=== PATIENT | male | born 1935 | race Caucasian/White ===

== ENCOUNTER → 2016-03-29 | Outpatient (CLI) | payer OTHER ==
[~2016-03-29] VITALS: Ht 193 cm; Wt 94.4 kg
[~2016-03-29] MED LIST: ACET-749 PO; ASCA500 PO; B-COCAP2 PO; COEN75CA PO; MAGN250T22 PO; MULT-506 PO; VITA400C15 PO
[2016-03-29 14:59] VITALS: BP 151/84; PULSE 65; Ht 193 cm; Wt 94.4 kg
== END | disposition home or self-care (01) ==
LOC: C.NEUR 14:43
PROVIDERS: ATTEND Internal Medicine Pulmonary Disease
DX: G47.33 Obstructive sleep apnea (adult) (pediatric) (principal); G47.31 Primary central sleep apnea

== ENCOUNTER → 2016-04-10 | Outpatient (CLI) | payer OTHER ==
[2016-04-10 12:21] LABS: COMPLETE YES; EOS % 1.6 %; HEMATOCRIT 38.5 % (42-52); LYMPH % 39.4 %; LYMPH ABS # 1.22 K/uL (1.2-3.4); MEAN CELL VOLUME 95.8 fL (80-100); MEAN CORPUSCULAR HEMOGLOBIN 32.6 pg (25-34); MEAN PLATELET VOLUME 10.3 fL (7.4-10.4); MONO % 8.7 %; NEUT % 50.3 %; PLATELET COUNT 147 K/uL (130-400); RED BLOOD COUNT 4.02 M/uL (4.7-6.1)
[2016-04-10 12:29] LABS: ALT/SGPT 23 U/L (12-78); BLOOD UREA NITROGEN 18 mg/dl (7-18); BUN/CREATININE RATIO 16.4 (10-20); CALCIUM 8.9 mg/dl (8.5-10.1); CARBON DIOXIDE 25 mmol/L (21-32); CHLORIDE 107 mmol/L (98-107); CHOLESTEROL 195 mg/dl (0-200); GLUCOSE 90 mg/dl (70-99); POTASSIUM 3.9 mmol/L (3.5-5.1); SODIUM 141 mmol/L (136-145); TRIGLYCERIDES 86 mg/dl (0-150); VERY LOW DENSITY LIPOPROT CALC 17 mg/dl
[2016-04-10 12:33] LABS: ALB/GLOB RATIO 1.2 (0.9-2); ALKALINE PHOSPHATASE 75 U/L (45-117); AST/SGOT 17 U/L (15-37); CHOLESTEROL/HDL RATIO 2.7; FERRITIN 138.4 ng/ml (8.0-388.0); HDL CHOLESTEROL 73 mg/dl; LDL CHOLESTEROL CALCULATED 105 mg/dl; TOTAL IRON BINDING CAPACITY 267 mcg/dl (250-450)
--- NOTE | 2016-04-17 08:57 | CODING QUERY MEDICAL NECESSITY ---
SUPPORTING DIAGNOSIS NEEDED A supporting diagnosis is required for the test/procedure performed on this patient in order for us to be reimbursed by the patient's insurance. Please provide a supporting diagnosis for the following test/procedure listed below next to the test name along with your signature. *If there is no additional diagnosis for this patient that would support the following test/procedure please document that below next to the test/procedure. Test(s)/Procedure(s) that require a supporting diagnosis: DOS 04/10 * Vitamin B12 DIAGNOSIS: Provider Signature: Date: Thank you Elizabeth Harmon Health Information Management Once completed, please kindly fax back to [phone] For questions please call [phone]
== END | disposition home or self-care (01) ==
LOC: C.LAB1850 10:46
PROVIDERS: ATTEND Internal Medicine
DX: Z00.00 Encounter for general adult medical examination without abnormal findings (principal); D64.9 Anemia, unspecified; I10 Essential (primary) hypertension

== ENCOUNTER → 2016-07-31 | Outpatient (CLI) | payer OTHER ==
[~2016-07-31] VITALS: Ht 193 cm; Wt 90.4 kg
[~2016-07-31] MED LIST changes: -ACET-749 PO
[2016-07-31 14:47] VITALS: BP 161/73; PULSE 80; Ht 193 cm; Wt 90.4 kg
== END ==
LOC: C.NEUR 12:50
PROVIDERS: ATTEND Internal Medicine Pulmonary Disease
DX: G47.33 Obstructive sleep apnea (adult) (pediatric) (principal); G47.31 Primary central sleep apnea

== ENCOUNTER → 2016-09-25 | Outpatient (CLI) | payer OTHER ==
[2016-09-25 12:23] LABS: BASO % 0.4 %; BASO ABS # 0.01 K/uL (0-0.2); COMPLETE YES; EOS % 1.4 %; HEMATOCRIT 39.2 % (42-52); LYMPH % 31.8 %; LYMPH ABS # 0.88 K/uL (1.2-3.4); MEAN CORPUSCULAR HEMOGLOBIN 32.7 pg (25-34); MEAN CORPUSCULAR HGB CONC 33.7 g/dl (32-36); MEAN PLATELET VOLUME 10.1 fL (7.4-10.4); MONO % 8.3 %; NEUT % 58.1 %; PLATELET COUNT 142 K/uL (130-400); RED BLOOD COUNT 4.04 M/uL (4.7-6.1); WHITE BLOOD COUNT 2.77 K/uL (4.8-10.8)
[2016-09-25 13:52] LABS: BLOOD UREA NITROGEN 21 mg/dl (7-18); BUN/CREATININE RATIO 16.1 (10-20); CALCIUM 9.4 mg/dl (8.5-10.1); CARBON DIOXIDE 29 mmol/L (21-32); CHLORIDE 106 mmol/L (98-107); GLUCOSE 90 mg/dl (70-99); POTASSIUM 4.3 mmol/L (3.5-5.1); SODIUM 141 mmol/L (136-145)
== END | disposition home or self-care (01) ==
LOC: C.LAB1850 11:09
PROVIDERS: ATTEND Physician Assistant
DX: G47.33 Obstructive sleep apnea (adult) (pediatric) (principal); F41.9 Anxiety disorder, unspecified

== ENCOUNTER → 2016-10-30 | Outpatient (CLI) | payer OTHER ==
[~2016-10-30] VITALS: Ht 193 cm; Wt 89.1 kg
[2016-10-30 14:41] VITALS: BP 152/83; PULSE 60; Ht 193 cm; Wt 89.1 kg
== END | disposition home or self-care (01) ==
LOC: C.NEUR 13:09
PROVIDERS: ATTEND Internal Medicine Pulmonary Disease
DX: G47.33 Obstructive sleep apnea (adult) (pediatric) (principal); G47.31 Primary central sleep apnea

== ENCOUNTER → 2016-12-17 | Outpatient (CLI) | payer OTHER ==
--- NOTE | 2016-12-18 05:42 | PAP/PSG TECHNICIAN REPORT ---
[facility] Tray Service Worker Polysomnogram Report Study name: None Report date: 12/18/2016 Study date: 12/17/2016 Referring Physician: Michael Marcos M.D. Name: HERI JUAN Felipe Interpreting Physician: Michael Marcos M.D. Date of : 1935 Tray Service Worker: Marysol Rosales RPSGT. Sex: Male Age: 80 StudyType: PSG PAP Weight: 206 lbs Height: 80 years, Height 6' 4" Neck Circum:16INCHES BMI: 25.07 Medications: Alprazolam 0.25mg, Mipirocin Ointment 2% Patient History Study started on room air with ASV settings: min EPAP +4, max EPAP+15, min PS+4, max PS +20, max pressure +25 in room #6. 80 yr old male here tonight for an ASV study because he failed CPAP and Bi-PAP. He is currently on Bi-PAP +02/22 but is having a high leak. His neck circ=16inches. Parameters Monitored NPSG: E1-M2, E2-M1, Fp1-M2, Fp2-M1, F3-M2, F4-M2, F4-M1, C3-M2, C4-M2, C4-M1, O1-M2, O2-M2, O2-M1, T3-M2, T4-M1, P3-M2, P4-M1, CHIN1, CHIN2, HR, EKG, Legs, PFLOW, SNOR, FLOW, CFLOW, Tidal Volume, THOR, ABDO, SpO2, PLTH, CPRESS, ETCO2 Wave, ETCO2, pH Sleep Architecture Sleep Stages Time at Lights Off 11:27:02 PM STAGES Time (min.) TST (%) Time at Lights On 5:37:32 AM Wake 170.0 -- Total Recording Time (TRT) 370.50 min. N1 30.5 15 Total Sleep Period (TSP) 273.0 min. N2 162.0 81 Total Sleep Time (TST) 200.5min. N3 0.0 0 Awake Time 170.0 min. REM 8.0 4 Wake after Sleep Onset 160.0 min. Sleep Efficiency (SE) 54 % Sleep Onset Latency (ALEJANDRO) 10.0 min. Number of Stage 1 Shifts None Awakenings 20 Stage Changes 89 Number of REM periods 6 REM 8.0 4 REM Latency 126.5 min. NREM 192.5 96 Body Position Analysis Supine Right Left Side Prone Vertical Total Sleep Time (min.) 370.5 0.0 0.0 0.00 0.0 0.0 Total Sleep Time (%) 100% 0% 0% 0 0% N/A% Total Sleep Time REM (min.) 8.0 0.0 0.0 None 0.0 0.0 Total Sleep Time NREM (min.) 192.5 0.0 0.0 None 0.0 0.0 Intermittent Wake (min.) 170.0 0.0 0.0 None 0.0 0.0 Total Sleep Period (%) 100% None None None None None Arousals Myoclonus (PLM) * Events Count Index Events Count Index Spontaneous 26 8 Events Awake (PLMW) 292 103.1 Respiratory 7 2.4 Events Asleep w/ Arousal (PLMA) 61 18.3 PLM 60 18 Events Asleep w/o Arousal (PLMS) 529 158.3 Snoring 16 5 Total Asleep 590 176.6 Total 107 32 Total 882 143 Respiratory Analysis * CA OA MA CH H RERA Total Count 3 2 0 0 4 0 9 Index 0.9 0.6 0.0 0 1.2 0 2.7 Mean Duration 19.5 14.4 0.0 0.00 37.8 0.0 26.5 Longest Duration 30.3 15.3 0.0 0.00 0.0 0.0 48.3 Respiratory Event Summary Total Supine ~Supine Right Left Prone REM NREM Apneas Count 5 5 N/A N/A N/A N/A 0 5 Index 1.5 1 N/A N/A N/A N/A 0 2 Hypopneas (4% Desat) Count 4 4 N/A N/A N/A N/A 0 4 Index 1.2 1.2 N/A N/A N/A N/A 0.0 1.2 Apneas & All Hypopneas Count 9 9 N/A N/A N/A N/A 0 9 Index 2.7 3 N/A N/A N/A N/A 0.0 2.8 Respiratory Events (Slat Basket Maker Machine+All Hyp+RERA) Count 9 9 N/A N/A N/A N/A 0 9 Index 2.7 3 N/A N/A N/A N/A 0.0 2.8 Respiratory Related Arousal Count 7 9 N/A N/A N/A N/A 0 8 Index 2.4 2 N/A N/A N/A N/A 0 2 Snoring Analysis Supine Right Left Prone REM NREM Total Snore duration 10.5 min Snores count 296 N/A N/A N/A 61 235 296 Snore mean duration 2.1 Sec Snores index 89 N/A N/A N/A 457.5 73.2 88.6 TST with snoring (%) 5.3% Desaturation Event Summary: Minimum %SpO2 Event Count Mean/Min/Max Duration(sec.) Desaturation Index % Time In Bed > 90 5 33.6 / 23.3 / 41.5 0.8 99.5 86 - 90 0 N/A 0.0 0.5 81 - 85 0 N/A 0.0 0.0 76 - 80 0 N/A 0.0 0.0 71 - 75 0 N/A 0.0 0.0 66 - 70 0 N/A 0.0 0.0 61 - 65 0 N/A 0.0 0.0 56 - 60 0 N/A 0.0 0.0 51 - 55 0 N/A 0.0 0.0 < 50 0 N/A 0.0 0.0 Total REM NREM Awake <50% 0.0 min. 0.0 min. 0.0 min. 0.0 min. 51 - 60% 0.0 min. 0.0 min. 0.0 min. 0.0 min. 61 - 70% 0.0 min. 0.0 min. 0.0 min. 0.0 min. 71 - 80% 0.0 min. 0.0 min. 0.0 min. 0.0 min. 81 - 90% 1.8 min. 0.0 min. 1.5 min. 0.2 min. 91 - 100% 360.0 min. 8.0 min. 191.0 min. 161.0 min. Average 95 94 94 96 Minimum SpO2 88 92 88 88 Desaturation Event Index 0.8 0.0 1.2 0.4 # Desat. Events below 89% 1 N/A 1 N/A Time(%) with Saturation below 89% 0.0 0.0 0.0 0.0 Time(min.) with Saturation below 89% 0.1 0.0 0.1 0.1 Time (mins) REM (mins) NREM (mins) % of TST SpO2 Below 90% 3 N/A N3 0.2 SpO2 Below 88% 0 0 0 0 Heart Rate Analysis Min (bpm) Max (bpm) Average (bpm) Awake 30 80 52 NREM 34 55 48 REM 44 50 48 Overall 34 55 48 Supplemental O2 Values Minimum O2 level: None Value Start Time End Time Tray Service Worker Comments Mr. Fregoso slept in the supine position. Cardiac arrhythmia and PLM's were noted. No bruxism noted. ASV was initiated at: EPAP MIN: +4 CMH2O EPAP MAX: +[id number] PS MIN: +4CMH2O PS MAX: +80LCV8G MAX PRESSURE +[id number] RATE: AUTO No changes to the settings were needed. A large Simplus full face mask was used during titration. He awoke to use the restroom 1 time during the night. He stated that he slept worse than when at home. ASV FINAL SETTINGS: EPAP MIN: +4 CMH2O EPAP MAX +15 CMH2O PS MIN: +4 CMH20 PS MAX: + 20 CMH2O MAX PRESSURE: +25 CMH2O RATE: AUTO The final report will be interpreted and signed by a sleep physician. The completed physician report will then be placed in the patient medical record. Therapy Event: Therapy (cm H20) 1 Total Time at Pressure (min.) 370.5 TST at Pressure (min.) 200.5 # Periods 1 Sleep Onset (min.) 10.0 REM Onset (min.) 136.5 Sleep Efficiency % 54 Wakefulness (%) 45.9 Wakefulness (min.) 170.0 NREM 1 (%) 8.2 NREM 1 (min.) 30.5 NREM 2 (%) 43.7 NREM 2 (min.) 162.0 NREM 3 (%) 0.0 NREM 3 (min.) 0.0 REM (%) 2.2 REM (min.) 8.0 # Arousals 107 Arousal Index 32.0 # Snore 296 Snore Index 88.6 AHI 2.7 AHI Supine 2.7 AHI Non-Supine N/A NREM AHI 2.8 REM AHI 0.0 RDI 2.7 # Obstructive 2 # Central Ap 3 # Mixed 0 # Hypopneas 4 RERAS 0 Total Respiratory Events 9 Time Below SpO2 89.00% (min.) 0.1 Mean NREM SpO2 (%) 94 Mean REM SpO2 (%) 94 Mean Sleep SpO2 (%) 94 Min NREM SpO2 (%) 88 Min REM SpO2 (%) 92 Position Supine (min.) 200.5 Position Non-supine (min.) 0.0 LM Index Sleep 176.6 LM Index NREM 178.6 LM Index REM 127.5 Mean Heart Rate (bpm) 48 Min Heart Rate (bpm) 34
--- NOTE | 2016-12-19 10:20 | POLYSOMNOGRAPH REPORT ---
CLINICAL DATA: A 80-year-old male with BMI of 25.07, referred by myself for an ASV titration. He has moderate complex sleep apnea. He has failed both CPAP and BiPAP. He is currently on BiPAP 02/22, but is having a high leak rate and high AHI. He is referred for an ASV titration. SLEEP ARCHITECTURE: Total recording time was 370.5 minutes. Total sleep period was 273 minutes. Total sleep time was 200.5 minutes divided between 192.5 minutes of non-REM sleep and 8 minutes of REM sleep. Sleep onset latency was 10 minutes. REM latency was 126.5 minutes. Sleep efficiency was reduced to 54%. Wake after sleep onset was 116 minutes. Sleep consisted of stage N1 15%, N2 81% and REM 4%. AROUSAL DATA: 107 arousals were recorded for an index of 32 per hour. 60 were due to PLMs events. PLM DATA: Severe PLMD was noted. There were 590 limb movements during sleep noted for an index of 176.6 per hour with arousal index of 18.3 per hour. RESPIRATORY DATA: The AHI was 2.7. There were 3 central and 2 mixed apneic episodes. The longest duration of apnea was 30.3 seconds. There were 4 hypopneic episodes with the mean duration of 37.8 seconds. OXIMETRY DATA: No hypoxemia was seen. Oxygen arpit was 88% - mean saturation was 95%. EKG: Heart rates ranged from 34 to 55 beats per minute. Occasional PACs were noted. SENIOR CLINICIAN'S COMMENTS AND TREATMENT SUMMARY: The patient slept supine. ASV was initiated at EPAP minimum of 4 cm of water pressure, EPAP maximum of 15 cm water pressure, pressure support minimum 4 cm of water pressure, pressure support of maximum 20 cm water pressure, maximum pressure of 25 cm of water with an auto rate. He used a large Simplus full facemask. He slept for the 200.5 minutes on ASV with an AHI of 3.7. He stated that he slept worse than usually does at home. He had very frequent PLMs in the night. His sleep was very fragmented. IMPRESSION: Moderate complex sleep apnea corrected with ASV. EPAP 4 minimum, EPAP maximum 15, pressure support minimum 4, pressure support maximum 20, maximum pressure 25 cm of water pressure with an auto rate. RECOMMENDATIONS: The patient should be started on ASV at the above noted settings. MTDD
== END | disposition home or self-care (01) ==
LOC: C.NEUR 21:00
PROVIDERS: ATTEND Internal Medicine Pulmonary Disease
DX: I10 Essential (primary) hypertension (principal); G47.30 Sleep apnea, unspecified

== ENCOUNTER → 2017-01-07 | Outpatient (CLI) | payer OTHER | END | disposition home or self-care (01) | LOC: C.LAB1850 12:18 | PROVIDERS: ATTEND Physician Assistant Medical | DX: G47.61 Periodic limb movement disorder (principal) ==

== ENCOUNTER → 2017-06-13 | Outpatient (CLI) | payer OTHER ==
[2017-06-13 13:17] LABS: ALBUMIN 3.8 gm/dl (3.4-5.0); ALT/SGPT 25 U/L (12-78); BLOOD UREA NITROGEN 20 mg/dl (7-18); CALCIUM 8.7 mg/dl (8.5-10.1); CARBON DIOXIDE 28 mmol/L (21-32); CHOLESTEROL 187 mg/dl (0-200); CREATININE 1.09 mg/dl (0.60-1.40); GLUCOSE 84 mg/dl (70-99); POTASSIUM 3.8 mmol/L (3.5-5.1); SODIUM 138 mmol/L (136-145)
[2017-06-13 13:18] LABS: BASO % 0.3 %; BASO ABS # 0.01 K/uL (0-0.2); EOS % 1.8 %; EOS ABS # 0.06 K/uL (0-0.5); HEMATOCRIT 38.7 % (42-52); HEMOGLOBIN 13.3 g/dL (14.0-18.0); IG# 0.01 K/uL (0.00-0.02); LYMPH % 32.4 %; LYMPH ABS # 1.08 K/uL (1.2-3.4); MEAN CELL VOLUME 95.3 fL (80-100); MEAN CORPUSCULAR HEMOGLOBIN 32.8 pg (25-34); MEAN CORPUSCULAR HGB CONC 34.4 g/dl (32-36); MEAN PLATELET VOLUME 9.5 fL (7.4-10.4); MONO % 13.5 %; MONO ABS # 0.45 K/uL (0.11-0.59); NEUT % 51.7 %; NEUT ABS # 1.72 K/uL (1.4-6.5); PLATELET COUNT 148 K/uL (130-400); RED CELL DISTRIBUTION WIDTH SD 45.2 fL (36.4-46.3); WHITE BLOOD COUNT 3.33 K/uL (4.8-10.8)
[2017-06-13 13:27] LABS: ALKALINE PHOSPHATASE 84 U/L (45-117); AST/SGOT 17 U/L (15-37); LDL CHOLESTEROL CALCULATED 102 mg/dl; TOTAL PROTEIN 7.2 gm/dl (6.4-8.2)
[2017-06-13 13:28] LABS: HEMOGLOBIN A1C 5.3 % (4.5-5.6)
== END | disposition home or self-care (01) ==
LOC: C.LAB1850 10:18
PROVIDERS: ATTEND Internal Medicine
DX: I10 Essential (primary) hypertension (principal)

== ENCOUNTER 2019-08-17 09:02 | Observation (INO) ==
[2019-08-17] MEDS ORDERED: dilTIAZem HCl 5 MG/ML 5 ML VIAL IV STA (09:16)
[2019-08-17] MEDS ORDERED: STAT IV Infusion **Titration per Protocol STA (09:16)
--- NOTE | 2019-08-17 09:26 | Emergency Department Note ---
History of Present Illness General Chief complaint: Arrhythmia/Palpitations Time Seen by Provider: 08/17/19 09:10 Source: patient Mode of arrival: EMS History of Present Illness Provider complaint: Palpitations Onset (ago): hour(s) (7:30 AM) Location: chest Radiation: non-radiation Pain Consistency: + constant Maximum Pain Intensity: 0 Quality: + other (Racing heartbeat) Relieved By: + none Associated symptoms: no chest pain, no cough, no fever/chills, no headaches and no shortness of breath This is an 83-year-old male who presents with palpitations starting at 7:30 AM. The patient states that he woke up at 6:30 AM without symptoms. He laid in bed for an hour as he usually does while he is waiting for his to wake up and then he suddenly felt palpitations. He felt his heart racing. He had no other symptoms associated with this. He denies any chest discomfort or pain including pressure or tightness. He denies any shortness of breath or lightheadedness. He has had no recent fever, cough or cold symptoms, abdominal pain, vomiting or diarrhea or urinary symptoms. He has never had atrial fibrillation in the past. He does state that he used to have occasional skipped beats and palpitations but he was never medicated because they were infrequent. Home Medications Home Medications Medication Instructions Recorded Confirmed Type multivitamin 1 tab PO QAM 12/02/18 08/17/19 History alprazolam [Xanax] 0.25 mg PO HS 08/17/19 08/17/19 History valacyclovir [Valtrex] 500 mg PO Q8H PRN 08/17/19 08/17/19 History Allergies Allergy/AdvReac Type Severity Reaction Status Date / Time valacyclovir Allergy Verified 08/17/19 11:23 Past Med/Surg History Medical History Anemia (Chronic) Anxiety (Chronic) Central sleep apnea (Chronic) Dupuytrens contracture (Chronic) Elevated blood pressure reading without diagnosis of hypertension (Chronic) Hyperglycemia (Chronic) Inhibited sexual excitement (Chronic) Joint pain in the shoulder/clavicle region (Chronic) Obstructive sleep apnea syndrome (Chronic) Orthostatic hypotension (Chronic) Osteoarthritis (Chronic) Palpitations (Chronic) Periodic limb movement disorder (Chronic) Premature ventricular contractions (Chronic) Sleep dysfunction with arousal disturbance (Chronic) Surgical History History of ankle surgery Family History Other Dementia Heart disease Hypertension Social History Preferred Language: [place] Communication Ability: Effective Database Admin Required: No Beliefs That Will Affect Care: None marital status: Current Living Situation: Spouse current occupational status: employed Other Information That Helps Us Care for You: No Feels Safe at Home: Yes Safety Concerns: Feels Safe At This Time Smoking Status: Never smoker Hx Alcohol Use: Yes Alcohol type: beer Review of Systems See HPI for pertinent positives & negatives. and A total of 10 systems reviewed and were otherwise negative Physical Exam Vital Signs Vital Signs - 24 hr 08/17/19 09:08 08/17/19 09:44 08/17/19 10:26 Temperature 36.8 C Temperature Source Oral Pulse Rate 130 H Pulse Rate [Finger] 129 H 121 H Respiratory Rate 18 18 18 Respiratory Effort / Characteristics Non-Labored Non-Labored Respiratory Depth Normal Normal Blood Pressure 125/95 Blood Pressure [Right Arm] 155/89 H 132/97 Blood Pressure Mean 105 Blood Pressure Mean [Right Arm] 111 108 Pulse Oximetry 98 98 99 Oxygen Delivery Method Room Air Room Air Sepsis Recent Fever Within 48 Hours No Sepsis New/Unexplained Change in Mental Status No Sepsis Action Taken by Nursing No Action Required Constitutional: Vital signs reviewed. Eyes: Pupils are equal round reactive to light. Conjunctiva are noninjected. ENT: Pharynx is clear without erythema or exudate. Mucous membranes are moist. Neck supple without meningeal signs. Respiratory: Clear to auscultation bilaterally. Breath sounds are equal bilaterally. Cardiovascular: Tachycardia. Irregularly irregular rhythm. Heart rate 140. GI: Soft, nondistended and nontender. Bowel sounds are present. Musculoskeletal: No peripheral edema. No lower extremity tenderness. Integumentary: No cyanosis. or jaundice. Neurological: The patient is awake and alert. No focal deficits. Psychiatric: Normal affect. Not anxious appearing. Course Administered Medications Diltiazem HCl 125 mg/ Dextrose 125 mls @ 10 mls/hr IV .[id number] [facility]; Protocol Stop: 09/16/19 09:29 Last Titration: 08/17/19 14:41 Dose: 0 mg/hr, 0 mls/hr Documented by: [id number] Cosigned by: [id number] Titration: 08/17/19 14:29 Dose: 5 mg/hr, 5 mls/hr Documented by: [id number] Cosigned by: [id number] Titration: 08/17/19 13:05 Dose: 10 mg/hr, 10 mls/hr Documented by: [id number] Cosigned by: [id number] Admin: 08/17/19 09:41 Dose: 5 mg/hr, 5 mls/hr Documented by: [id number] Cosigned by: [id number] Potassium Chloride/Sodium Chloride (Normal Saline W/20 Meq Kcl) 20 meq in 1,000 mls @ 80 mls/hr IV .[id number] ESTUARDO Stop: 09/16/19 10:59 Last Admin: 08/17/19 13:32 Dose: 80 mls/hr Documented by: [id number] Heparin Sodium/Dextrose (Heparin Sodium/Dextrose) 25,000 units in 500 mls @ 31 mls/hr IV .[id number] ESTUARDO; Protocol Stop: 09/16/19 11:44 Last Admin: 08/17/19 13:03 Dose: 31 mls/hr Documented by: [id number] Cosigned by: [id number] Discontinued Medications Diltiazem HCl (Cardizem) 10 mg IV NOW STA Stop: 08/17/19 09:17 Last Admin: 08/17/19 09:30 Dose: 10 mg Documented by: [id number] Cosigned by: [id number] Heparin Sodium/Dextrose () 1 ea N/A ONE ONE; Protocol Stop: 08/17/19 11:42 Last Admin: 08/17/19 13:32 Dose: 1 ea Documented by: [id number] Sodium Chloride (Nss) 500 mls @ 999 mls/hr IV .Q31M ESTUARDO Stop: 08/17/19 10:00 Last Infusion: 08/17/19 10:18 Dose: 0 mls/hr Documented by: [id number] Admin: 08/17/19 09:31 Dose: 999 mls/hr Documented by: [id number] Magnesium Sulfate/Dextrose (Magnesium Sulfate / D5w) 1 gm in 100 mls @ 100 mls/hr IV ONE ONE Stop: 08/17/19 11:58 Last Infusion: 08/17/19 12:29 Dose: 0 mls/hr Documented by: [id number] Admin: 08/17/19 11:28 Dose: 100 mls/hr Documented by: [id number] Miscellaneous () 1 ea N/A NOW STA Stop: 08/17/19 09:17 Last Admin: 08/17/19 09:45 Dose: 1 ea Documented by: [id number] Potassium Chloride (Klor-Con M20) 40 meq PO NOW STA Stop: 08/17/19 11:00 Last Admin: 08/17/19 11:27 Dose: 40 meq Documented by: [id number] Critical Care Time Critical Care Time: Yes Total Critical Care Time: 36 I have personally spent approximately 36 minutes of critical care time in the direct management of this patient. This includes bedside care, interpretation of diagnostic studies, and testing, discussion with consultants, patient, and family members, and other required patient management activities. These minutes are in excess of all separately billable procedures. Medical Decision Making Differential Diagnosis SVT, atrial fibrillation, electrolyte abnormality, metabolic derangement, ACS Medical Records Attestation: I reviewed the patient's medical records. I did perform a limited focused review of portions of the patient's old chart on the electronic medical record. The patient has had no recent pertinent visits to this hospital. Home Medications Current Medication List: was personally reviewed by me Laboratory Data Attestation: I reviewed the patient's lab results. Result diagrams: 08/17/19 09:35 08/17/19 09:35 Lab Results 08/17/19 08/17/19 08/17/19 Range/Units 09:35 09:35 09:35 WBC 3.23 L (4.8-10.8) K/uL RBC 3.95 L (4.7-6.1) M/uL Hgb 13.0 L (14.0-18.0) g/dL Hct 39.0 L (42-52) % MCV 98.7 (80-100) fL MCH 32.9 (25-34) pg MCHC 33.3 (32-36) g/dL RDW Std Deviation 48.7 H (36.4-46.3) fL RDW Coeff of Devorah 13.4 (11.5-14.5) % Plt Count 126 L (130-400) K/uL MPV 9.8 (7.4-10.4) fL Immature Gran % (Auto) 0.0 % Neut % (Auto) 64.1 % Lymph % (Auto) 24.1 % Dukes % (Auto) 9.6 % Eos % (Auto) 1.9 % Baso % (Auto) 0.3 % Immature Gran # (Auto) 0.00 (0.00-0.02) K/uL Neut # (Auto) 2.07 (1.4-6.5) K/uL Lymph # (Auto) 0.78 L (1.2-3.4) K/uL Dukes # (Auto) 0.31 (0.11-0.59) K/uL Eos # (Auto) 0.06 (0-0.5) K/uL Baso # (Auto) 0.01 (0-0.2) K/uL PT (9.0-12.0) Seconds INR (0.9-1.1) APTT (21.0-31.0) Seconds PTT Ratio Sodium 140 (136-145) mmol/L Potassium 3.5 (3.5-5.1) mmol/L Chloride 108 H (98-107) mmol/L Carbon Dioxide 25 (21-32) mmol/L Anion Gap 7.0 (3-11) BUN 20 H (7-18) mg/dl Creatinine 1.19 (0.6-1.4) mg/dl Est Cr Clr Drug Dosing 58.8 ml/min Est GFR ( Amer) 65.5 Est GFR (Non-Af Amer) 56.5 BUN/Creatinine Ratio 16.9 (10-20) Glucose 103 H (70-99) mg/dl Calcium 9.0 (8.5-10.1) mg/dl Magnesium 1.9 (1.8-2.4) mg/dl Total Bilirubin 1.4 H (0.2-1) mg/dl AST 20 (15-37) U/L ALT 28 (12-78) U/L Alkaline Phosphatase 87 (45-117) U/L Troponin I < 0.015 (0-0.045) ng/ml Total Protein 7.2 (6.4-8.2) gm/dl Albumin 3.8 (3.4-5.0) gm/dl Globulin 3.4 (2.5-4.0) gm/dl Albumin/Globulin Ratio 1.1 (0.9-2) TSH 1.630 (0.300-4.500) uIu/ml 08/17/19 Range/Units 09:35 WBC (4.8-10.8) K/uL RBC (4.7-6.1) M/uL Hgb (14.0-18.0) g/dL Hct (42-52) % MCV (80-100) fL MCH (25-34) pg MCHC (32-36) g/dL RDW Std Deviation (36.4-46.3) fL RDW Coeff of Devorah (11.5-14.5) % Plt Count (130-400) K/uL MPV (7.4-10.4) fL Immature Gran % (Auto) % Neut % (Auto) % Lymph % (Auto) % Dukes % (Auto) % Eos % (Auto) % Baso % (Auto) % Immature Gran # (Auto) (0.00-0.02) K/uL Neut # (Auto) (1.4-6.5) K/uL Lymph # (Auto) (1.2-3.4) K/uL Dukes # (Auto) (0.11-0.59) K/uL Eos # (Auto) (0-0.5) K/uL Baso # (Auto) (0-0.2) K/uL PT 11.4 (9.0-12.0) Seconds INR 1.1 (0.9-1.1) APTT 25.9 (21.0-31.0) Seconds PTT Ratio 0.9 Sodium (136-145) mmol/L Potassium (3.5-5.1) mmol/L Chloride (98-107) mmol/L Carbon Dioxide (21-32) mmol/L Anion Gap (3-11) BUN (7-18) mg/dl Creatinine (0.6-1.4) mg/dl Est Cr Clr Drug Dosing ml/min Est GFR ( Amer) Est GFR (Non-Af Amer) BUN/Creatinine Ratio (10-20) Glucose (70-99) mg/dl Calcium (8.5-10.1) mg/dl Magnesium (1.8-2.4) mg/dl Total Bilirubin (0.2-1) mg/dl AST (15-37) U/L ALT (12-78) U/L Alkaline Phosphatase (45-117) U/L Troponin I (0-0.045) ng/ml Total Protein (6.4-8.2) gm/dl Albumin (3.4-5.0) gm/dl Globulin (2.5-4.0) gm/dl Albumin/Globulin Ratio (0.9-2) TSH (0.300-4.500) uIu/ml Imaging Data Radiologist's Impression: XR chest 1V portable HISTORY: Atrial fibrillation. COMPARISON: Chest 01/26/2011. FINDINGS: No pneumothorax. No pleural effusions. The heart is top normal in size. Punctate calcified granuloma within the periphery the right upper lobe, unchanged. The lungs are otherwise clear. No evidence for pulmonary edema. The lungs appear hyperexpanded with apical predominant emphysematous changes. IMPRESSION: No significant change compared to the prior study. No acute process. Emphysema. ACT 112: Negative or not required by law. Electronically signed by: Rodríguez Palafox M.D. 08/17/2019 9:29 AM ECG Data Attestation: I personally reviewed and interpreted this ECG as follows: Indication: + palpitations Rate (beats per minute): 143 Rhythm: + atrial fibrillation (With RVR) ECG Intervals/blocks: no Left bundle branch block ECG ST segments: + ST depression and + repolarization abnormalities ECG Findings: no PVCs Blood Pressure Blood Pressure Findings: Elevated blood pressure Blood Pressure Disposition: further management by hospitalist LUCIANA Narrative I did provide prehospital medical command for the patient. I did order Cardizem 10 mg IV. I did evaluate the patient as noted above. I did place an order for continuous cardiac monitoring. The monitor showed atrial fibrillation with a he art rate of 140. I did order and personally review the patient's 12-lead EKG as described above. He has atrial fibrillation with RVR. I did treat him with a Cardizem bolus IV. He was also started on a continuous drip of Cardizem. I did order and personally reviewed the images of the patient's chest x-ray as described above. He has changes consistent with emphysema with no acute process. I did order and review the patient's blood work as noted in the electronic medical record. He has pancytopenia. His troponin is negative. TSH and electrolytes are unremarkable. I did reassess the patient multiple times. His heart rate did come down to the 1 teens. I did recommend hospitalization for further care and evaluation. I did discuss case with the hospitalist and therapeutic case manager. He was continued on the Cardizem drip. Impression & Plan Atrial fibrillation with rapid ventricular response, Atrial fibrillation, new onset, Pancytopenia Discharge Plan Visit Data *Final* Discharge Date/Time: 08/17/19 11:52 Chief Complaint: Arrhythmia/Palpitations ED Provider: Garcia Dyer Discharge Problem: Atrial fibrillation with rapid ventricular response, Atrial fibrillation, new onset, Pancytopenia Patient Disposition: Admitted As Inpatient Discharge Instructions Interventions: ED Discharge Assessment Last Done: 08/17/19 11:52
[2019-08-17] MEDS ORDERED: dilTIAZem HCL 125 MG in DEXTROSE 5% 100 ML IV SCH (09:30)
[2019-08-17] MEDS ORDERED: SODIUM CHLORIDE 0.9% 500 ML IV SCH (09:30)
--- NOTE | 2019-08-17 09:31 | XRay Report ---
XR chest 1V portable HISTORY: Atrial fibrillation. COMPARISON: Chest 01/26/2011. FINDINGS: No pneumothorax. No pleural effusions. The heart is top normal in size. Punctate calcified granuloma within the periphery the right upper lobe, unchanged. The lungs are otherwise clear. No sherwin dence for pulmonary edema. The lungs appear hyperexpanded with apical predominant emphysematous kemp es. IMPRESSION: No significant change compared to the prior study. No acute process. Emphysema. ACT 112: Negative or not required by law. Electronically signed by: Rodríguez Palafox M.D. 08/17/2019 9:29 AM
[2019-08-17 09:47] LABS: Basophils # (auto) 0.01 K/uL (0-0.2); Basophils % (auto) 0.3 %; Eosinophils # (auto) 0.06 K/uL (0-0.5); Eosinophils % (auto) 1.9 %; Lymphocytes # (auto) 0.78 K/uL (1.2-3.4); Lymphocytes % (auto) 24.1 %; Mean Corpuscular Hemoglobin 32.9 pg (25-34); Mean Corpuscular Hgb Conc 33.3 g/dL (32-36); Mean Corpuscular Volume 98.7 fL (80-100); Mean Platelet Volume 9.8 fL (7.4-10.4); Monocytes # (auto) 0.31 K/uL (0.11-0.59); Monocytes % (auto) 9.6 %; Neutrophils # (auto) 2.07 K/uL (1.4-6.5); Neutrophils % (auto) 64.1 %; Platelet Count 126 K/uL (130-400); RDW Coefficient of Variation 13.4 % (11.5-14.5); RDW Standard Deviation 48.7 fL (36.4-46.3); Red Blood Count 3.95 M/uL (4.7-6.1); White Blood Count 3.23 K/uL (4.8-10.8)
[2019-08-17 09:57] LABS: Alanine Aminotransferase 28 U/L (12-78); Albumin Level 3.8 gm/dl (3.4-5.0); Aspartate Aminotransferase 20 U/L (15-37); BUN Creatinine Ratio 16.9 (10-20); Blood Urea Nitrogen 20 mg/dl (7-18); Carbon Dioxide 25 mmol/L (21-32); Chloride 108 mmol/L (98-107); Creatinine Clr Calc Pharmacy 58.8 ml/min; Est GFR (African American) 65.5; Est GFR (Non-African American) 56.5; Glucose 103 mg/dl (70-99); Potassium 3.5 mmol/L (3.5-5.1); Sodium 140 mmol/L (136-145)
[2019-08-17 10:02] LABS: Albumin Globulin Ratio 1.1 (0.9-2); Alkaline Phosphatase 87 U/L (45-117); Bilirubin,Total 1.4 mg/dl (0.2-1); Globulin 3.4 gm/dl (2.5-4.0); Total Protein 7.2 gm/dl (6.4-8.2); Troponin I < 0.015 ng/ml (0-0.045)
[2019-08-17 10:16] LABS: Magnesium 1.9 mg/dl (1.8-2.4); Thyroid Stimulating Hormone 1.63 uIu/ml (0.300-4.500)
[2019-08-17] MEDS ORDERED: MAGNESIUM SULFATE / D5W 1 GM/100 ML BAG IV ONE (10:59)
[2019-08-17] MEDS ORDERED: POTASSIUM CHLORIDE 20 MEQ TABCR PO STA (10:59)
[2019-08-17] MEDS ORDERED: NSS + 20MEQ KCL 20 MEQ/1,000 ML BAG IV SCH (11:00)
--- NOTE | 2019-08-17 11:01 | History & Physical Report ---
Date of Service August 17, 2019 Assessment & Plan (1) Atrial fibrillation with rapid ventricular response: This patient is an 83-year-old male with a history of borderline hypertension, HERMAN on CPAP, mild anemia, and OA, here with new onset rapid atrial fibrillation and flutter. Heart rates were significant elevated 170-200 and EMS and down to the 140s after first bolus of diltiazem. Heart rate is now persistently 130 and suspected atrial flutter upon admission on diltiazem drip. With diffuse inferolateral ST depressions but no chest pain and troponin is negative. TSH is normal at 1.63 -Admit to PCU -Continue diltiazem drip and titrate until rate controlled or spontaneously converts to sinus rhythm -Start heparin drip for anticoagulation given age, gender, and borderline hypertension -Would be a good candidate for Eliquis or Xarelto moving forward -Consult cardiology-I discussed the case with him on the phone today shortly after admission -Replace magnesium and potassium as below -Check echocardiogram for valvular abnormalities -Follow ECG (2) Hypokalemia: Replaced with p.o. potassium for goal of greater than or equal to 4 -Follow BMP in the morning (3) Hypomagnesemia: Replace with 1 g of IV magnesium sulfate for goal of greater than or equal to 2.0 -Follow magnesium level in the morning (4) Osteoarthritis: Continue Tylenol as needed (5) Obstructive sleep apnea syndrome: Ordered CPAP for while here and offered for to bring his home CPAP back in -Ordered his usual alprazolam 0.25 mg p.o. at bedtime to help with difficulty wearing his mask at night (6) Elevated blood pressure reading without diagnosis of hypertension: Is a diagnosis he has had in the past with rates around 140/90 -he will likely be started on rate control medication which would also help with blood pressure (7) Anemia: Chronic and followed by PCP Has had colonoscopies in the past -Follow-up as an outpatient and follow CBC while here 1 started on anticoagulation (8) Pancytopenia: Now with pancytopenia -Follow CBC in the morning -Follow-up with PCP outpatient (9) Hyperbilirubinemia: Mild elevation to 1.4, may be Gilbert's -Follow LFTs in the morning No abdominal pain (10) DVT prophylaxis: Heparin drip with transition to Eliquis or Xarelto Disposition-admit to PCU on observation status History of Present Illness Chief Complaint: Racing heartbeat Primary Care Provider: Tobi Quach MD This patient is an 83-year-old male with a history of HERMAN on CPAP, insomnia, anemia, and osteoarthritis, who presents to the ER with acute onset of rapid heartbeat at 730 this morning. He frequently has difficulty sleeping and wakes up several times through the night. He remembers waking up at 630 this morning felt fine and went back to sleep and when he woke up at 730 noticed a rapid heartbeat. He also had a wound on his finger from the day before that was bleeding and he got up to clean the wound and get the bleeding to stop. He denies any associated lightheadedness or chest pain, no shortness of breath. No numbness or tingling or weakness. No headache. Because the rapid heart rate did not go away, he called for an ambulance. Reportedly in the ambulance as per the ER physician, his heart rate was anywhere from 170 to 200 bpm and he was given Cardizem. In the ER, he was found to be in atrial fibrillation on EKG with rates in the 140s and was given another bolus of Cardizem 10 mg and started on a Cardizem drip. When I saw him, he was in atrial flutter with a rate around 130 consistently. He has never had a history of atrial fibrillation or flutter in the past, although he reports having frequent "skipped beats" and an occasional quick run of fast beats. He was seen about 7 years ago by cardiology for these ectopic beats and reports having thorough work-up at that time. He will be admitted for rapid atrial fibrillation. Allergies Allergy/AdvReac Type Severity Reaction Status Date / Time valacyclovir Allergy Verified 08/17/19 11:23 Home Medications Home Medications Medication Instructions Recorded Confirmed Type multivitamin 1 tab PO QAM 12/02/18 08/17/19 History alprazolam [Xanax] 0.25 mg PO HS 08/17/19 08/17/19 History valacyclovir [Valtrex] 500 mg PO Q8H PRN 08/17/19 08/17/19 History Past Med/Surg History Medical History Anemia (Chronic) Anxiety (Chronic) Central sleep apnea (Chronic) Dupuytrens contracture (Chronic) Elevated blood pressure reading without diagnosis of hypertension (Chronic) Hyperglycemia (Chronic) Inhibited sexual excitement (Chronic) Joint pain in the shoulder/clavicle region (Chronic) Obstructive sleep apnea syndrome (Chronic) Orthostatic hypotension (Chronic) Osteoarthritis (Chronic) Palpitations (Chronic) Periodic limb movement disorder (Chronic) Premature ventricular contractions (Chronic) Sleep dysfunction with arousal disturbance (Chronic) Surgical History History of ankle surgery History of foot surgery Family History Other Dementia Heart disease Hypertension Social History Preferred Language: Bengali Communication Ability: Effective Pan Cleaner Required: No Beliefs That Will Affect Care: None marital status: Current Living Situation: Spouse current occupational status: employed Other Information That Helps Us Care for You: No Feels Safe at Home: Yes Safety Concerns: Feels Safe At This Time Smoking Status: Never smoker Hx Alcohol Use: Yes Alcohol type: beer Review of Systems Review of Systems: All systems reviewed & are unremarkable except as noted in HPI & below Physical Exam Constitutional: WD/WN, vitals as above Eyes: PERRL, conjunctivae normal, anicteric sclerae ENMT: external ear and nose normal, oropharynx normal Neck: trachea midline, no thyromegaly Respiratory: normal respiratory effort, lungs clear to auscultation Cardiovascular: Rate/Rhythm: + tachycardic and + irregularly irregular Heart Sounds: no murmur Vessels: dorsalis pedis pulses present Extremities: no calf tenderness and no edema Chest (Breasts): Chest: normal inspection of chest Gastrointestinal (Abdomen): normal bowel sounds, soft, nontender, no hepatosplenomegaly Musculoskeletal: Extremities: extremities normal to inspection; no cyanosis and no clubbing Skin: no rashes, warm and dry Neurologic: moves all extremities and awake; no focal motor deficits Psychiatric: A+Ox3, euthymic affect Lymphatic: no lymphedema Results & Data Results & Data ([facility]) Vital Signs (Past 12 Hours) Vital Signs Temp Pulse Pulse Resp BP BP Pulse Ox 08/17/19 10:26 121 H 18 132/97 99 08/17/19 09:44 129 H 18 155/89 H 98 08/17/19 09:08 36.8 C 130 H 18 125/95 98 Laboratory Results 08/17/19 08/17/19 08/17/19 Range/Units 09:35 09:35 09:35 WBC 3.23 L (4.8-10.8) K/uL RBC 3.95 L (4.7-6.1) M/uL Hgb 13.0 L (14.0-18.0) g/dL Hct 39.0 L (42-52) % MCV 98.7 (80-100) fL MCH 32.9 (25-34) pg MCHC 33.3 (32-36) g/dL RDW Std Deviation 48.7 H (36.4-46.3) fL RDW Coeff of Devorah 13.4 (11.5-14.5) % Plt Count 126 L (130-400) K/uL MPV 9.8 (7.4-10.4) fL Immature Gran % (Auto) 0.0 % Neut % (Auto) 64.1 % Lymph % (Auto) 24.1 % Wilkes % (Auto) 9.6 % Eos % (Auto) 1.9 % Baso % (Auto) 0.3 % Immature Gran # (Auto) 0.00 (0.00-0.02) K/uL Neut # (Auto) 2.07 (1.4-6.5) K/uL Lymph # (Auto) 0.78 L (1.2-3.4) K/uL Wilkes # (Auto) 0.31 (0.11-0.59) K/uL Eos # (Auto) 0.06 (0-0.5) K/uL Baso # (Auto) 0.01 (0-0.2) K/uL PT 11.4 (9.0-12.0) Seconds INR 1.1 (0.9-1.1) APTT 25.9 (21.0-31.0) Seconds PTT Ratio 0.9 Sodium (136-145) mmol/L Potassium (3.5-5.1) mmol/L Chloride (98-107) mmol/L Carbon Dioxide (21-32) mmol/L Anion Gap (3-11) BUN (7-18) mg/dl Creatinine (0.6-1.4) mg/dl Est Cr Clr Drug Dosing ml/min Est GFR ( Amer) Est GFR (Non-Af Amer) BUN/Creatinine Ratio (10-20) Glucose (70-99) mg/dl Calcium (8.5-10.1) mg/dl Magnesium 1.9 (1.8-2.4) mg/dl Total Bilirubin (0.2-1) mg/dl AST (15-37) U/L ALT (12-78) U/L Alkaline Phosphatase (45-117) U/L Troponin I (0-0.045) ng/ml Total Protein (6.4-8.2) gm/dl Albumin (3.4-5.0) gm/dl Globulin (2.5-4.0) gm/dl Albumin/Globulin Ratio (0.9-2) TSH 1.630 (0.300-4.500) uIu/ml 08/17/19 Range/Units 09:35 WBC (4.8-10.8) K/uL RBC (4.7-6.1) M/uL Hgb (14.0-18.0) g/dL Hct (42-52) % MCV (80-100) fL MCH (25-34) pg MCHC (32-36) g/dL RDW Std Deviation (36.4-46.3) fL RDW Coeff of Devorah (11.5-14.5) % Plt Count (130-400) K/uL MPV (7.4-10.4) fL Immature Gran % (Auto) % Neut % (Auto) % Lymph % (Auto) % Wilkes % (Auto) % Eos % (Auto) % Baso % (Auto) % Immature Gran # (Auto) (0.00-0.02) K/uL Neut # (Auto) (1.4-6.5) K/uL Lymph # (Auto) (1.2-3.4) K/uL Wilkes # (Auto) (0.11-0.59) K/uL Eos # (Auto) (0-0.5) K/uL Baso # (Auto) (0-0.2) K/uL PT (9.0-12.0) Seconds INR (0.9-1.1) APTT (21.0-31.0) Seconds PTT Ratio Sodium 140 (136-145) mmol/L Potassium 3.5 (3.5-5.1) mmol/L Chloride 108 H (98-107) mmol/L Carbon Dioxide 25 (21-32) mmol/L Anion Gap 7.0 (3-11) BUN 20 H (7-18) mg/dl Creatinine 1.19 (0.6-1.4) mg/dl Est Cr Clr Drug Dosing 58.8 ml/min Est GFR ( Amer) 65.5 Est GFR (Non-Af Amer) 56.5 BUN/Creatinine Ratio 16.9 (10-20) Glucose 103 H (70-99) mg/dl Calcium 9.0 (8.5-10.1) mg/dl Magnesium (1.8-2.4) mg/dl Total Bilirubin 1.4 H (0.2-1) mg/dl AST 20 (15-37) U/L ALT 28 (12-78) U/L Alkaline Phosphatase 87 (45-117) U/L Troponin I < 0.015 (0-0.045) ng/ml Total Protein 7.2 (6.4-8.2) gm/dl Albumin 3.8 (3.4-5.0) gm/dl Globulin 3.4 (2.5-4.0) gm/dl Albumin/Globulin Ratio 1.1 (0.9-2) TSH (0.300-4.500) uIu/ml Diagnostic Findings Chest x-ray image personally reviewed by me and agree with following report: XR chest 1V portable HISTORY: Atrial fibrillation. COMPARISON: Chest 01/26/2011. FINDINGS: No pneumothorax. No pleural effusions. The heart is top normal in size. Punctate calcified granuloma within the periphery the right upper lobe, unchanged. The lungs are otherwise clear. No evidence for pulmonary edema. The lungs appear hyperexpanded with apical predominant emphysematous changes. IMPRESSION: No significant change compared to the prior study. No acute process. Emphysema. ECG Additional Comments: ECG with atrial fibrillation with ST depression in the inferolateral leads, heart rate 143 Code Status & VTE Plan Code Status Full code VTE Prophylaxis Plan VTE Prophylaxis will be ordered: Yes PG Care Time/CCT Total # of Minutes Spent Total Time Spent with Patient: Total time spent is greater than 50% in coordination of care (as documented) at patient's floor/unit and/or counseling patient: Coding Level of Care Code 92371 OBS Care - Level 3 Diagnoses Atrial fibrillation with rapid ventricular response I48.91 Hypokalemia E87.6 Hypomagnesemia E83.42 Osteoarthritis M19.90 Obstructive sleep apnea syndrome G47.33 Elevated blood pressure reading without diagnosis of hypertension R03.0 Anemia D64.9 Pancytopenia D61.818 Hyperbilirubinemia E80.6 DVT prophylaxis Z29.9
[2019-08-17] MEDS ORDERED: Heparin IV Standard *NO* Bolus ONE (11:41)
[2019-08-17] MEDS ORDERED: HEPARIN SODIUM/DEXTROSE 25,000 UNITS/500 ML BAG IV SCH (11:45)
[2019-08-17 12:12] LABS: INR 1.1 (0.9-1.1); Partial Thromboplastin Ratio 0.9; Partial Thromboplastin Time 25.9 Seconds (21.0-31.0); Prothrombin Time 11.4 Seconds (9.0-12.0)
[2019-08-17] MEDS ORDERED: ONDANSETRON INJ 2 MG/ML 2 ML VIAL IV PRN (12:41)
[2019-08-17] MEDS ORDERED: ACETAMINOPHEN 325 MG TAB PO PRN (12:41)
--- NOTE | 2019-08-17 15:53 | Cardiology Consultation ---
Date of Consultation August 17, 2019 Assessment & Plan (1) Atrial fibrillation with rapid ventricular response: 83 yo M pMHx. anemia, anxiety, central sleep apnea, orthostatic hypotension, and PVC's presented with racing heart beat, found to have atrial fibrillation on EKG and Atrial flutter on telemetry unclear if there were prior episodes of atrial fibrillation, has converted to NSR. Atrial fibrillation, potentially new onset, potential predisposing cause is sleep apnea, he converted to NSR at 14:00 today - TSH is wnl - ECHO results pending (potentially consider a limited ECHO if there is a reduced EF on initial ECHO) - initially placed on Diltiazem drip, converted to Diltiazem 60 mg SR and recommend transition to Diltiazem CD 180 mg - [id number] - 2 points for age , with no history or recent severe bleeding or recent major surgery - starting Eliquis 5 mg BID - recommend 30 day event recorder - follow up with cardiology (2) Atrial fibrillation, new onset: (3) Central sleep apnea: (4) Palpitations: Supervising Physician Co-Signing Physician Notes Patient was interviewed, examined and the case discussed with Dr. Madison. See separate note for further details. History of Present Illness Attending Physician: Paris Millan MD History of Present Illness Jose Fregoso is a 83 year old male with a past medical history of anemia, anxiety, central sleep apnea, orthostatic hypotension, and PVC's. She noticed palpitations and that his heart was racing that started at 7:30 AM while in bed. He has a prior history of anxiety with fast heart beat as well as what he describes as skipped beats. His skipped beats had previously occurred 1-2 times per week and more recently he has been having these events 1 month prior. He has never had a feeling like this morning. He is relatively active and had, "a good day yesterday". No recent illness. He had seen Dr. Betancur in 2012 and had multiple Holter monitors that showed PVC's. Social: no tobacco use, ETOH use: 1 beer on Saturday 2 beers on Saturday Allergies Allergy/AdvReac Type Severity Reaction Status Date / Time valacyclovir Allergy Verified 08/17/19 11:23 Home Medications Home Medications Medication Instructions Recorded Confirmed Type multivitamin 1 tab PO QAM 12/02/18 08/17/19 History alprazolam [Xanax] 0.25 mg PO HS 08/17/19 08/17/19 History valacyclovir [Valtrex] 500 mg PO Q8H PRN 08/17/19 08/17/19 History Patient History Medical History Anemia (Chronic) Anxiety (Chronic) Central sleep apnea (Chronic) Dupuytrens contracture (Chronic) Elevated blood pressure reading without diagnosis of hypertension (Chronic) Hyperglycemia (Chronic) Inhibited sexual excitement (Chronic) Joint pain in the shoulder/clavicle region (Chronic) Obstructive sleep apnea syndrome (Chronic) Orthostatic hypotension (Chronic) Osteoarthritis (Chronic) Palpitations (Chronic) Periodic limb movement disorder (Chronic) Premature ventricular contractions (Chronic) Sleep dysfunction with arousal disturbance (Chronic) Surgical History History of ankle surgery History of foot surgery Family History Other Dementia Heart disease Hypertension Social History Preferred Language: Chinese Communication Ability: Effective Keycase Assembler Required: No Beliefs That Will Affect Care: None marital status: Current Living Situation: Spouse current occupational status: employed Feels Safe at Home: Yes Smoking Status: Never smoker Hx Alcohol Use: Yes Alcohol type: beer Review of Systems Constitutional: no fever, no chills and no fatigue Respiratory: no cough and no dyspnea Cardiovascular: + palpitations; no chest pain and no edema Physical Exam Constitutional: well developed and well nourished; no acute distress and not ill appearing Eyes: EOM intact bilaterally ENMT: external ear and nose normal, oropharynx normal Neck: trachea midline, no thyromegaly Respiratory: normal respiratory effort, lungs clear to auscultation Cardiovascular: RRR, no murmur, no edema Vessels: no JVD and no carotid bruit Extremities: + pedal edema (trace pedal edema) Gastrointestinal (Abdomen): normal bowel sounds, soft, nontender, no hepatosplenomegaly Skin: no rashes, warm and dry Neurologic: PERRL, EOMI, accommodation nl, no face palsy, no dysarthria Psychiatric: A+Ox3, euthymic affect Results & Data ([facility] [place]) Vital Signs (Past 12 Hours) Vital Signs Temp Pulse Pulse Resp BP BP Pulse Ox 08/17/19 15:24 36.8 C 60 19 112/68 97 08/17/19 14:36 68 125/68 08/17/19 13:30 129 H 135/80 08/17/19 13:05 128 H 20 126/89 95 08/17/19 12:43 36.6 C 128 H 20 135/84 97 08/17/19 11:52 127 H 18 129/96 97 08/17/19 10:26 121 H 18 132/97 99 08/17/19 09:44 129 H 18 155/89 H 98 08/17/19 09:08 36.8 C 130 H 18 125/95 98 CXR: emphysema no acute changes EKG: atrial fibrillation with RVT Resident Activity Tracking Resident Involvement: Resident Care Provided Care Provided: Adult Hospital Medicine
--- NOTE | 2019-08-17 16:04 | XCELERA ---
[id number]
--- NOTE | 2019-08-17 16:32 | Electrocardiogram Report ---
Test Reason : Blood Pressure : / mmHG Vent. Rate : 143 BPM Atrial Rate : 133 BPM P-R Int : 000 ms QRS Dur : 094 ms QT Int : 314 ms P-R-T Axes : 000 015 254 degrees QTc Int : 484 ms Atrial fibrillation with rapid ventricular response Marked ST abnormality, possible inferior subendocardial injury Abnormal ECG When compared with ECG of 22-AUG-2015 16:10, Atrial fibrillation has replaced Sinus rhythm Vent. rate has increased BY [address] now depressed in Inferior leads ST now depressed in Lateral leads Confirmed by Sandro Lauren ([id number]) on 08/17/2019 4:31:41 PM Referred By: Confirmed By:Sandro Lauren
[2019-08-17] MEDS: APIXABAN 5 MG TABLET PO SCH ×2 (17:32→23:05)
[2019-08-17] MEDS ORDERED: ALPRAZolam 0.25 MG TABLET PO SCH (21:00)
[2019-08-18 06:37] LABS: Eosinophils # (auto) 0.11 K/uL (0-0.5); Eosinophils % (auto) 2.9 %; Hematocrit (blood only) 38.7 % (42-52); Hemoglobin 12.9 g/dL (14.0-18.0); Lymphocytes # (auto) 1.42 K/uL (1.2-3.4); Mean Corpuscular Hemoglobin 33.2 pg (25-34); Mean Corpuscular Hgb Conc 33.3 g/dL (32-36); Mean Corpuscular Volume 99.5 fL (80-100); Mean Platelet Volume 10.1 fL (7.4-10.4); Monocytes # (auto) 0.48 K/uL (0.11-0.59); Monocytes % (auto) 12.5 %; Neutrophils # (auto) 1.83 K/uL (1.4-6.5); Neutrophils % (auto) 47.6 %; Platelet Count 145 K/uL (130-400); RDW Coefficient of Variation 13.9 % (11.5-14.5); RDW Standard Deviation 49.6 fL (36.4-46.3); Red Blood Count 3.89 M/uL (4.7-6.1); White Blood Count 3.84 K/uL (4.8-10.8)
[2019-08-18 07:12] LABS: BUN Creatinine Ratio 16.6 (10-20); Calcium 8.8 mg/dl (8.5-10.1); Creatinine Clr Calc Pharmacy 60.3 ml/min; Est GFR (African American) 67.6; Est GFR (Non-African American) 58.3; Magnesium 2.2 mg/dl (1.8-2.4); Potassium 4.3 mmol/L (3.5-5.1)
--- NOTE | 2019-08-18 08:23 | Hospitalist Progress Note ---
Date of Service August 18, 2019 Assessment & Plan (1) Atrial fibrillation with rapid ventricular response: This patient is an 83-year-old male with a history of borderline hypertension, HERMAN on CPAP, mild anemia, and OA, here with new onset rapid atrial fibrillation and flutter. Heart rates were significant elevated 170-200 and EMS and down to the 140s after first bolus of diltiazem. Heart rate is now persistently 130 and suspected atrial flutter upon admission on diltiazem drip. With diffuse inferolateral ST depressions but no chest pain and troponin is negative. TSH is normal at 1.63 -Consult cardiology, recommended change diltiazem to 180 po and eliquis was started -Replace magnesium and potassium as below -Check echocardiogram for valvular abnormalities -Follow ECG (2) Hypokalemia: Replaced with p.o. potassium for goal of greater than or equal to 4 -Follow BMP in the morning (3) Hypomagnesemia: Replace with 1 g of IV magnesium sulfate for goal of greater than or equal to 2.0 -Follow magnesium level in the morning (4) Osteoarthritis: Continue Tylenol as needed (5) Obstructive sleep apnea syndrome: Ordered CPAP for while here and offered for to bring his home CPAP back in -Ordered his usual alprazolam 0.25 mg p.o. at bedtime to help with difficulty wearing his mask at night (6) Elevated blood pressure reading without diagnosis of hypertension: Is a diagnosis he has had in the past with rates around 140/90 -he will likely be started on rate control medication which would also help with blood pressure (7) Anemia: Chronic and followed by PCP Has had colonoscopies in the past -Follow-up as an outpatient and follow CBC while here 1 started on anticoagulation (8) Pancytopenia: Now with pancytopenia -Follow CBC in the morning -Follow-up with PCP outpatient (9) Hyperbilirubinemia: Mild elevation to 1.4, may be Gilbert's -Follow LFTs in the morning No abdominal pain (10) DVT prophylaxis: Heparin drip with transition to Eliquis or Xarelto Disposition-admit to PCU on observation status Admission and Anticipated Discharge Date Admission Date: August 17, 2019 Results & Data Results & Data ([facility]) Vital Signs (Past 12 Hours) Vital Signs Temp Pulse Resp BP Pulse Ox 08/18/19 07:48 97.7 F 51 L 17 120/67 97 08/18/19 03:10 97.3 F L 53 L 17 129/75 98 08/17/19 23:54 97.3 F L 53 L 18 136/74 99 PG Care Time/CCT Total # of Minutes Spent Total Time Spent with Patient: Total time spent is greater than 50% in coordination of care (as documented) at patient's floor/unit and/or counseling patient: Coding Diagnoses Atrial fibrillation with rapid ventricular response I48.91 Hypokalemia E87.6 Hypomagnesemia E83.42 Osteoarthritis M19.90 Obstructive sleep apnea syndrome G47.33 Elevated blood pressure reading without diagnosis of hypertension R03.0 Anemia D64.9 Pancytopenia D61.818 Hyperbilirubinemia E80.6 DVT prophylaxis Z29.9
[2019-08-18] MEDS ORDERED: dilTIAZem HCL 120 MG CAPCR PO SCH (09:00)
[2019-08-18] MEDS ORDERED: MULTIVITAMIN TAB PO SCH (09:00)
[2019-08-18] MEDS ORDERED: dilTIAZem HCL 180 MG CAPCR PO SCH (09:00)
[2019-08-18] MEDS: APIXABAN 5 MG TABLET PO SCH (09:41)
--- NOTE | 2019-08-18 09:54 | Cardiology Consultation ---
Date of Consultation August 17, 2019 Assessment & Plan (1) Atrial flutter: He presented with a rapid irregular rhythm which on his initial electrocardiogram suggests atrial fibrillation, however may have been atrial flutter with variable AV conduction. Shortly thereafter with rate control it b ecame a regular atrial flutter with a ventricular response of 130 bpm. That then terminated spontaneously to sinus rhythm. He was very symptomatic with it, it is not something he has felt before. It is possible that he has had atrial fibrillation before that was less symptomatic and that this represents atrial flutter which can be more symptomatic and faster. I would recommend anticoagulation for now and rate control with diltiazem. I am going to discontinue heparin and start Eliquis. I will use a short acting diltiazem (BID preparation) but when he goes home he can use long-acting. (2) Central sleep apnea: He has a history of sleep apnea and uses a mask, sleep apnea is associated with atrial arrhythmias. He seems to be compliant but has difficulty with the mask. (3) Palpitations: He has longstanding palpitations which on evaluation several times have been premature beats, this arrhythmia appeared different. I cannot be sure however that he does not have asymptomatic episodes of atrial fibrillation at a controlled heart rate. History of Present Illness Reason for Consultation: Atrial flutter Requesting Physician: Dr. Millan Attending Physician: Paris Millan MD History of Present Illness This is an 83-year-old male with a history of central sleep apnea, premature beats associated with palpitations, anxiety and orthostatic hypotension but no documented atrial fibrillation or sustained arrhythmia despite monitoring in the past. He now presented with a unusual symptom for him which was sudden onset of a fast and irregular heartbeat while laying in bed. This persisted and he came in by ambulance where he was identified as having a very rapid irregular heart rate at about 170 bpm. That slowed down with initial treatment to an atrial flutter with 2-1 AV block and ventricular rate of 130 bpm for which he was also very aware. This then terminated spontaneously shortly after arrival and he felt back to normal. Although he has a long history of intermittent palpitations he has had no sustained arrhythmias and nothing like this in the past. He has had no change in his exercise ability, no exertional chest discomfort, no heart failure symptoms and no edema. Initial evaluation including cardiac enzymes and TSH were unremarkable. He has minimal alcohol consumption. Allergies Allergy/AdvReac Type Severity Reaction Status Date / Time valacyclovir Allergy Verified 08/17/19 11:23 Home Medications Home Medications Medication Instructions Recorded Confirmed Type multivitamin 1 tab PO QAM 12/02/18 08/17/19 History alprazolam [Xanax] 0.25 mg PO HS 08/17/19 08/17/19 History valacyclovir [Valtrex] 500 mg PO Q8H PRN 08/17/19 08/17/19 History Patient History Medical History Anemia (Chronic) Anxiety (Chronic) Central sleep apnea (Chronic) Dupuytrens contracture (Chronic) Elevated blood pressure reading without diagnosis of hypertension (Chronic) Hyperglycemia (Chronic) Inhibited sexual excitement (Chronic) Joint pain in the shoulder/clavicle region (Chronic) Obstructive sleep apnea syndrome (Chronic) Orthostatic hypotension (Chronic) Osteoarthritis (Chronic) Palpitations (Chronic) Periodic limb movement disorder (Chronic) Premature ventricular contractions (Chronic) Sleep dysfunction with arousal disturbance (Chronic) Surgical History History of ankle surgery History of foot surgery Family History Other Dementia Heart disease Hypertension Social History Preferred Language: German Communication Ability: Effective Freight Car Cleaner Required: No Beliefs That Will Affect Care: None marital status: Current Living Situation: Spouse current occupational status: employed Feels Safe at Home: Yes Smoking Status: Never smoker Hx Alcohol Use: Yes Alcohol type: beer Review of Systems Review of Systems: All systems reviewed & are unremarkable except as noted in HPI & below Physical Exam Physical Exam: Constitutional: Alert, cooperative and in no distress. HEENT: Unremarkable Neck: No jugular venous distention, carotid pulses are normal and equal bilaterally without bruits. Pulmonary: Clear to auscultation bilaterally. Cardiac: Regular rhythm with no murmur, gallop or rub. Abdomen: Soft, nontender with normal bowel sounds. Extremities: No edema. Distal pulses intact. Neurologic: No focal findings. Gait is steady. Skin: No rash, ecchymoses or petechiae. Results & Data ([facility]) Vital Signs (Past 12 Hours) Vital Signs Temp Pulse Pulse Resp BP BP Pulse Ox 08/17/19 15:24 36.8 C 60 19 112/68 97 08/17/19 14:36 68 125/68 08/17/19 13:30 129 H 135/80 08/17/19 13:05 128 H 20 126/89 95 08/17/19 12:43 36.6 C 128 H 20 135/84 97 08/17/19 11:52 127 H 18 129/96 97 08/17/19 10:26 121 H 18 132/97 99 08/17/19 09:44 129 H 18 155/89 H 98 08/17/19 09:08 36.8 C 130 H 18 125/95 98 Diagnostic Findings An electrocardiogram done prehospital on August 17, 2019 at 8:35 AM shows a very irregular rapid rate at 173 bpm, suggestive of atrial fibrillation. His electrocardiogram in the emergency room after arrival at the hospital on August 17, 2019 at 9:08 AM is suspicious for atrial fibrillation although I think it can also represent atrial flutter with variable ventricular response, the heart rate is 143 bpm. An electrocardiogram August 17, 2019 at 1501 shows sinus rhythm at 62 bpm and is unremarkable. Telemetry monitoring shows initially a rapid irregular rate followed by a very irregular rate at 130 bpm which appears to be atrial flutter with 2-1 AV conduction, that terminated abruptly to sinus rhythm with no significant pauses on August 17, 2019 at 1424. PG Care Time/CCT Total # of Minutes Spent Total Time Spent with Patient: Total time spent is greater than 50% in coordination of care (as documented) at patient's floor/unit and/or counseling patient: Coding Level of Care Code 65157 Initial Inpt Care Lvl 3 Diagnoses Atrial flutter I48.92 Central sleep apnea G47.31 Palpitations R00.2
--- NOTE | 2019-08-18 09:59 | Cardiology Progress Note ---
Date of Service August 18, 2019 Assessment & Plan (1) Atrial flutter: He presented with a rapid irregular rhythm which on his initial electrocardiogram suggests atrial fibrillation, however may have been atrial flutter with variable AV conduction. Shortly thereafter with rate control it became a regular atrial flutter with a ventricular response of 130 bpm. That then terminated spontaneously to sinus rhythm. He was very symptomatic with it, it is not something he has felt before. It is possible that he has had atrial fibrillation before that was less symptomatic and that this represents atrial flutter which can be more symptomatic and faster. I would recommend anticoagulation for now and rate control with diltiazem. My plan would be to continue anticoagulation (his [id number] score is 2) at least for now, get a 30-day event recorder to make sure we are not missing asymptomatic atrial arrhythmias and then have him come in for follow-up to see whether we want to continue these medications. It is not an easy decision. I would recommend discharged on Eliquis 5 mg twice daily and diltiazem CD 180 mgdaily. (2) Central sleep apnea: He has a history of sleep apnea and uses a mask, sleep apnea is associated with atrial arrhythmias. He seems to be compliant but has difficulty with the mask. (3) Palpitations: He has longstanding palpitations which on evaluation several times have been premature beats, this arrhythmia appears and feels different to him. I cannot be sure however that he does not have other asymptomatic episodes of atrial fibrillation at a controlled heart rate. Admission and Anticipated Discharge Date Admission Date: August 17, 2019 Subjective He is feeling well today, he feels back to normal and is tolerating his anticoagulant and diltiazem well. Physical Exam Physical Exam: Constitutional: Alert, cooperative and in no distress. HEENT: Unremarkable Neck: No jugular venous distention, carotid pulses are normal and equal bilaterally without bruits. Pulmonary: Clear to auscultation bilaterally. Cardiac: Regular rhythm with no murmur, gallop or rub. Abdomen: Soft, nontender with normal bowel sounds. Extremities: No edema. Distal pulses intact. Neurologic: No focal findings. Gait is steady. Skin: No rash, ecchymoses or petechiae. Results & Data ([facility]) Vital Signs (Past 12 Hours) Vital Signs Temp Pulse Resp BP Pulse Ox 08/18/19 07:48 36.5 C 51 L 17 120/67 97 08/18/19 03:10 36.3 C L 53 L 17 129/75 98 08/17/19 23:54 36.3 C L 53 L 18 136/74 99 Laboratory Results Cardiac Enzymes 08/17/19 Range/Units 09:35 AST 20 (15-37) U/L Troponin I < 0.015 (0-0.045) ng/ml Coagulation 08/17/19 08/17/19 Range/Units 09:35 17:51 PT 11.4 (9.0-12.0) Seconds APTT 25.9 29.0 (21.0-31.0) Seconds CBC 08/18/19 Range/Units 06:08 WBC 3.84 L (4.8-10.8) K/uL RBC 3.89 L (4.7-6.1) M/uL Hgb 12.9 L (14.0-18.0) g/dL Hct 38.7 L (42-52) % Plt Count 145 (130-400) K/uL Neut # (Auto) 1.83 (1.4-6.5) K/uL Lymph # (Auto) 1.42 (1.2-3.4) K/uL Ransom # (Auto) 0.48 (0.11-0.59) K/uL Eos # (Auto) 0.11 (0-0.5) K/uL Baso # (Auto) 0.00 (0-0.2) K/uL Comprehensive Metabolic Panel 08/17/19 08/18/19 Range/Units 09:35 06:08 Sodium 140 140 (136-145) mmol/L Potassium 3.5 4.3 D (3.5-5.1) mmol/L Chloride 108 H 108 H (98-107) mmol/L Carbon Dioxide 25 28 (21-32) mmol/L BUN 20 H 19 H (7-18) mg/dl Creatinine 1.19 1.16 (0.6-1.4) mg/dl Glucose 103 H 86 (70-99) mg/dl Calcium 9.0 8.8 (8.5-10.1) mg/dl AST 20 (15-37) U/L ALT 28 (12-78) U/L Alkaline Phosphatase 87 (45-117) U/L Total Protein 7.2 (6.4-8.2) gm/dl Albumin 3.8 (3.4-5.0) gm/dl Intake and Output 08/17/19 08/18/19 08/18/19 22:59 06:59 14:59 Intake Total 1833 / 2565 100 / 2565 Balance 1833 / 2165 100 / 2165 Intake: IV 1593 / 2225 HEPARIN SODIUM/DEXTROSE 25,000 500 / 500 units In 500 ml @ 31 mls/hr IV .[id number] ESTUARDO Rx#:[id number] NORMAL SALINE w/20 MEQ KCL 20 1000 / 1000 meq In 1,000 ml @ 80 mls/hr IV .[id number] ESTUARDO Rx#:[id number] Cardizem 125 mg In D5 100 ml @ 93 / 125 10 MG/HR 10 mls/hr IV .[id number] ESTUARDO Rx#:[id number] Oral 240 / 340 100 / 340 Other: # Unmeasured Voids 3 Weight 87.6 kg Diagnostic Findings Telemetry: Sinus rhythm and sinus bradycardia, no further atrial fibrillation. PG Care Time/CCT Total # of Minutes Spent Total Time Spent with Patient: Total time spent is greater than 50% in co ordination of care (as documented) at patient's floor/unit and/or counseling patient: Coding Level of Care Code 03467 Subseq Hosp Care Lvl 3 Diagnoses Atrial flutter I48.92 Central sleep apnea G47.31 Palpitations R00.2
--- NOTE | 2019-08-18 11:47 | Electrocardiogram Report ---
Test Reason : Blood Pressure : / mmHG Vent. Rate : 062 BPM Atrial Rate : 062 BPM P-R Int : 178 ms QRS Dur : 086 ms QT Int : 410 ms P-R-T Axes : 038 000 033 degrees QTc Int : 416 ms Normal sinus rhythm Normal ECG When compared with ECG of 17-AUG-2019 09:08, (unconfirmed) Sinus rhythm has replaced Atrial fibrillation Vent. rate has decreased BY [address] no longer depressed in Inferior leads ST no longer depressed in Anterolateral leads Confirmed by Sandro Lauren ([id number]) on 08/18/2019 11:47:09 AM Referred By: REFERRED SELF Confirmed By:Sandro Lauren
--- NOTE | 2019-08-18 17:52 | Discharge Summary ---
Date of Service August 18, 2019 Admission HPI Per Admitting Provider This patient is an 83-year-old male with a history of HERMAN on CPAP, insomnia, anemia, and osteoarthritis, who presents to the ER with acute onset of rapid heartbeat at 730 this morning. He frequently has difficulty sleeping and wakes up several times through the night. He remembers waking up at 630 this morning felt fine and went back to sleep and when he woke up at 730 noticed a rapid heartbeat. He also had a wound on his finger from the day before that was bleeding and he got up to clean the wound and get the bleeding to stop. He denies any associated lightheadedness or chest pain, no shortness of breath. No numbness or tingling or weakness. No headache. Because the rapid heart rate did not go away, he called for an ambulance. Reportedly in the ambulance as per the ER physician, his heart rate was anywhere from 170 to 200 bpm and he was given Cardizem. In the ER, he was found to be in atrial fibrillation on EKG with rates in the 140s and was given another bolus of Cardizem 10 mg and started on a Cardizem drip. When I saw him, he was in atrial flutter with a rate around 130 consistently. He has never had a history of atrial fibrillation or flutter in the past, although he reports having frequent "skipped beats" and an occasional quick run of fast beats. He was seen about 7 years ago by cardiology for these ectopic beats and reports having thorough work-up at that time. He will be admitted for rapid atrial fibrillation. Principal Diagnosis New onset atrial flutter rapid ventricular response rate controlled with diltiazem anticoagulated with Eliquis Discharge Exam The patient appeared well Vital signs as documented. Lungs are clear to auscultation and appear unlabored does not have any signs or symptoms of heart failure Cardiac exam, although atrial flutter is on the monitor patient sounds to be irregular no murmurs were heard Abdominal exam reveals normal bowel sounds, soft non tender, no masses Extremities are nonedematous and both pedal pulses are normal. Neurologic exam is alert and oriented, no focal loss of strength or sensation Skin is without bruises or rashes Psychologically is without concerns for anxiety or depression Discharge Data Allergies Allergy/AdvReac Type Severity Reaction Status Date / Time valacyclovir Allergy Verified 08/17/19 11:23 Consultations 08/17/19 10:21 ED Decision to Admit Stat 08/17/19 12:41 Consult Cardiology Routine Hospital Course (1) Atrial fibrillation with rapid ventricular response: This patient is an 83-year-old male with a history of borderline hypertension, HERMAN on CPAP, mild anemia, and OA, here with new onset rapid atrial fibrillation and flutter. Patient seen in consultation by cardiology specifically electrophysiology who felt the patient should be stable to be home on diltiazem CD 180+ Eliquis therapy. They are not concerned with any ischemic changes on EKG nor did they recommend additional ischemic evaluation. Tentative plans for possible cardioversion in the future TSH is normal at 1.63 Echocardiogram was performed showing normal left ventricular size and ejection fraction with no regional wall motion abnormalities left atrium is also normal in size but the right atrium is mildly dilated no aortic stenosis trace mitral regurg no mitral stenosis. (2) Hypokalemia: Replaced with p.o. potassium (3) Hypomagnesemia: Replete (4) Osteoarthritis: Continue Tylenol as needed (5) Obstructive sleep apnea syndrome: Continue on home CPAP Resume his usual alprazolam 0.25 mg p.o. at bedtime to help with difficulty wearing his mask at night (6) Elevated blood pressure reading without diagnosis of hypertension: Is a diagnosis he has had in the past with rates around 140/90 -Diltiazem will also impact on his high blood pressure (7) Anemia: Chronic and followed by PCP hemoglobin was 12.9 Has had colonoscopies in the past -Follow-up as an outpatient (8) Pancytopenia: Platelet count is improved to normal although he previously had mildly abnormal platelets 126 versus a normal of 130 mild anemia hemoglobin 13 versus 14 and mild leukopenia with a white count of 3.8 with the normal being 4.8 I do not feel there is anything at the ordinary at this point time is differential was without significant abnormalities (9) Hyperbilirubinemia: Mild elevation to 1.4, may be Gilbert's Total Time Total Time Spent Total Time Spent (In Minutes): It required greater than 30 minutes to prepare this patient for discharge Discharge Plan Discharge Items Patient Disposition: Home - Self-Care Reason For Visit: RAPID ATRIAL FIBRILLATION Discharge Diagnosis: atrial flutter new onset Activity: Resume your previous activity Non-emergency contact: Primary Care Provider and Deputy Probation Officer Call non-emergency contact if: you have any medication questions and your symptoms worsen Follow-up/Referrals: Tobi Quach MD [Primary Care Provider] - Diet: Regular Addtl Attending Provider Instructions: please limit or eliminate caffiene or other stimulants limit any alcohol to no more than two servings a day follow up with Dr Lauren, you have been diagnosed with atrial flutter, a rapid heart beat, you may take your Diltiazem starting tomorrow 6/3 am and your eliquis ( apixiban) starting tonight Pending Studies at Discharge: No Stand-Alone Forms: My [facility], Smoking Cessation Medications and DC Order Prescriptions: New Eliquis 5 mg Tablet 5 mg PO BID Qty: 60 RF: 0 diltiazem HCl 180 mg capsule,extended release 24hr 180 mg PO DAILY Qty: 30 RF: 5 Continued multivitamin tablet 1 tab PO QAM RF: 0 valacyclovir [Valtrex] 500 mg tablet 500 mg PO Q8H PRN (Reason: Cold Sores) RF: 0 alprazolam [Xanax] 0.25 mg tablet 0.25 mg PO HS RF: 0 Discharge Orders: Discharge Order (Routine); Ordered 08/18/19 Ordered By: Garcia Keller/Other Patient Handouts: AFib Admission Data Admit Date/Time: 08/17/19 10:59 Attending Provider: Garcia Hernandez Admit Provider: Paris Millan Primary Care Provider: Tobi Quach Other Providers: Paris Millan ; Sandro Lauren Other Interventions: Discharge Summary Assessment (RN) Last Done: 08/18/19 11:43 DC Date/Time DO NOT enter until pt leaves facility: 08/18/19 12:23 Coding Level of Care Code D/C Day Management >30 mins Diagnoses Atrial fibrillation with rapid ventricular response I48.91 Hypokalemia E87.6 Hypomagnesemia E83.42 Osteoarthritis M19.90 Obstructive sleep apnea syndrome G47.33 Elevated blood pressure reading without diagnosis of hypertension R03.0 Anemia D64.9 Pancytopenia D61.818 Hyperbilirubinemia E80.6
== END 2019-08-18 12:23 | disposition home or self-care (01) ==
LOC: ED 09:02 → 2S 09:02 → SUATTDRO 10:59 → 2S 11:52

== ENCOUNTER 2019-09-10 11:08 | Observation (INO) ==
--- NOTE | 2019-09-10 11:41 | History & Physical Bridge Note ---
Date of Service September 10, 2019 History & Physical Bridge Note I have examined the patient, reviewed the History & Physical and in the interval since the performance of the History & Physical I have noted the following changes of clinical significance: no changes noted. In sinus rhythm today
--- NOTE | 2019-09-10 11:42 | Pre Anesthesia Assessment ---
Date of Service September 10, 2019 Pre Sedation Assessment Vital Signs Temp Pulse Resp BP Pulse Ox 09/10/19 11:30 36.6 C 76 16 167/97 H 97 Cardiovascular + regular rate Respiratory + respiratory effort normal Pre-Sedation Airway Assessment Smoking Status: Never smoker Hx Sleep Apnea: Yes Hx Difficult Intubation: No Short, Thick Neck: No Thyromental Distance: > or= 3.5 Finger Breadths Oral Cavity: + WNL Mallampati Class: II ASA: ASA3 NPO Status Date of Last Intake of Fluids: 09/09/19 Time of Last Intake of Fluids: 18:00 Date of Last Intake of Solid Food: 09/09/19 Time of Last Intake of Solid Foods: 18:00 Procedure Planning Contraindications for Sedation: none Current Medications Reviewed: Yes Notes The planned sedation has been discussed with the patient. Informed Consent was obtained. I have identified the patient, determined the appropriateness of sedation and have assessed the patient immediately prior to the procedure. All medicine(s) and interventions are by my order.
[2019-09-10] MEDS ORDERED: HEPARIN (PORCINE) 1000 UNIT/ML 10 ML (CATH LAB USE ONLY) ONE (11:57)
[2019-09-10] MEDS ORDERED: LIDOCAINE HCL 1% 20 ML VIAL ONE (11:58)
[2019-09-10] MEDS ORDERED: fentaNYL citrate 100 MCG/2 ML VIAL ONE ×4 (12:11→13:50)
[2019-09-10] MEDS ORDERED: MIDAZOLAM HCL 5 MG/ML 1 ML VIAL ONE ×4 (12:11→15:01)
[2019-09-10] MEDS ORDERED: ACETAMINOPHEN 325 MG TAB PO PRN (16:08)
[2019-09-10] MEDS ORDERED: OXYCODONE HCL IR 5 MG TAB (IMMEDIATE RELEASE) PO PRN (16:08)
--- NOTE | 2019-09-10 16:08 | Electrophysiology Report ---
Date of Service September 10, 2019 Electrophysiology Procedure Electrophysiology Procedure Report Procedure performed: Ablation of supraventricular tachycardia, complete electrophysiologic testing including pacing of the left atrium via the coronary sinus, 3 dimensional electro anatomical map Staff copyist: Con Humphreys MD Indication: The patient is an 83-year-old gentleman with a history of recurrent atrial flutter. The somewhat appears to be typical atrial flutter the recurrent nature of his arrhythmia he was advised to consider catheter based therapy Procedure detail: Patient was informed of the risks benefits and alternatives to the intended procedure. He understood which proceed. He is taken to the electrophysiology suite in a fasting state. Conscious sedation was administered per protocol the patient was monitored electrocardiographically throughout today's procedure. The right femoral area was prepped and draped in usual sterile fashion. This area was anesthetized using subcutaneous menstruation of a lidocaine solution. The right femoral vein was accessed 3 times using modified Seldinger technique she has were placed over guidewires at this site. She has resisted passage of the catheters to the respective chambers and fluoroscopic guidance. This included right ventricular, coronary sinus and ablation catheter. Patient baseline conduction system was characterize. This point of linear ablation was begun through the caval tricuspid isthmus based on the patient's prior arrhythmias. During ablation the patient did develop atrial fibrillation and atrial flutter. Mapping of the atrial flutter was difficult as rhythm commonly terminated spontaneously. However, did appear to be a right atrial flutter. Three-dimensional electro anatomical mapping was performed. The rhythm did terminate on 2 occasions with radiofrequency application. Repeat electrophysiologic testing was performed subsequent to ablation. At the conclusion of the procedure the catheters and sheaths were removed. Hemostasis was achieved at the access sites using manual pressure. The patient tolerated procedure well. There were no immediate complications. Findings: Baseline intracardiac intervals Cycle length in the atrium 1054 milliseconds Cycle length in the ventricle 1065 milliseconds P.r.n. for 163 milliseconds QRS duration 78 milliseconds QT interval 395 milliseconds Av Wenckebach occurred at 350 milliseconds Ablation: During initial linear ablation the patient did develop atrial fibrillation which later organized into what appeared to be a typical right atrial flutter. Additional linear lesions were placed through the caval tricuspid isthmus. This is a performed in a power limited mode. A 8 Slovenian 3.5 millimeter irrigated navigational catheter was employed for ablation. The tachycardia did terminate on 2 occasions during radiofrequency application. Repeat electro anatomical mapping subsequent to ablation failed to confirm complete bidirectional block. Post ablation intervals Cycling the anterior 1094 milliseconds Cycling in the ventricle 1090 milliseconds P.r.n. interval 159 milliseconds QRS duration 75 milliseconds QT interval 400 milliseconds AH interval 86 milliseconds HV interval 52 milliseconds Effective refractory period of the Av node 250 milliseconds Conclusions Normal baseline intracardiac intervals Right atrial flutter Creation of linear lesions to the caval tricuspid isthmus with termination of atrial flutter Failure to confirm bidirectional block through the caval tricuspid isthmus despite extensive ablation at that site Transient atrial fibrillation [facility] Electrophysiology codes EP Procedure 1: Electrophysiology: 15538 EPS and Ablation SVT Procedure 2: Electrophysiology: 10382-51 Comp EPS w/LA pacing Procedure 3: Electrophysiology: 22565 3D mapping PG Moderate Sedation Codes Moderate Sedation Codes Procedure 1: Sedation/Anesthesia: 42413 Mod Sedation by the same physician;Init15 Min Child Age 5 & Up Procedure 2: Sedation/Anesthesia: 50274 Mod Sedation by the same physician; Ea [id number] Minutes
--- NOTE | 2019-09-10 16:08 | Post Anesthesia Assessment ---
Date of Service September 10, 2019 Post Sedation Assessment Vital Signs Temp Pulse Resp BP Pulse Ox 09/10/19 11:30 36.6 C 76 16 167/97 H 97 Recovery Score Activity: Moves 4 extremities Respiration: Deep Breath/Cough Circulation: +/-20% PreAnes Value Consciousness: Fully Awake Oxygen Saturation: > 92% On Room Air Discharge Sedation Level of Care: Fast Track Phase II Post Sedation Plan On clinical assessment, the patient appears to have tolerated the sedation without complications. Patient is recovering as anticipated. Patient will continue to be monitored by nursing and may be discharged when sedation discharge criteria are met per below protocol. Upon Completions of procedure up to 15 minutes continue every 5 minute vital signs and the P.A.R. score; then discharge to a Phase I or Fast Track to Phase II per the following guidelines: * Discharge Patient to appropriate Phase II area if PAR is 8 or greater or return to pre- procedure baseline. The post - procedure orders will be as directed. * If PAR score is less than 8 or not return to pre-procedure baseline then patient will follow Phase I monitoring till PAR is reached for Phase II. The Phase I may be done in procedure room or may call to secure a Phase I area. * If naloxone or flumazenil are used for reversal, hold in Phase I for continued monitoring from when last reversal dose was given for a minimum of 60 minutes or longer pending the nurse and/or physician discretion of patient condition before discharge to Phase II. Please call the Sedation Physician to re-evaluate and complete post-note for discharge to Phase II area. Do NOT discharge from procedure sedation or Phase 1 until post- sedation evaluation note is complete by procedure /sedation MD Sedation Discharge Instructions to be given to the patient at discharge to home.
[2019-09-10] MEDS ORDERED: PNEUMOCOCCAL ADMINISTRATION CHARGE ONE (16:52)
[2019-09-10] MEDS ORDERED: PNEUMOCOCCAL POLYSACCHARIDES 25 MCG/0.5 ML VIAL/SYR IM ONE (16:52)
[2019-09-10] MEDS ORDERED: ALPRAZolam 0.25 MG TABLET PO PRN (17:25)
[2019-09-11 08:36] LABS: Creatinine Clr Calc Pharmacy 70.6 ml/min; Est GFR (African American) 81.9; Est GFR (Non-African American) 70.6
--- NOTE | 2019-09-11 08:37 | Discharge Summary ---
Date of Service September 11, 2019 Admission HPI Per Admitting Provider The patient has a history of paroxysmal atrial flutter. He was seen in the hospital on 2 occasions for sustained atrial flutter. He was advised to consider catheter-based therapy for possible cure. Principal Diagnosis q Discharge Exam At the time of discharge the access site was without hematoma or bleeding. Discharge Data Allergies Allergy/AdvReac Type Severity Reaction Status Date / Time No Known Allergies Allergy Verified 09/10/19 11:38 Procedures Performed Operation Date: 09/10/19 12:00 Actual Procedures p EPS + Ablation for SVT Flutter - Akshat Humphreys MD s 3D Mapping ([facility]) - Akshat Humphreys MD Ordered Studies 09/10/19 06:45 EP Lab Images for PACS ONCE Hospital Course (1) Atrial flutter with rapid ventricular response: On the day of admission the patient underwent ablation for typical right atrial flutter. There were no complications. Patient stayed overnight as the case concluded late in the afternoon. No arrhythmias overnight. Patient was ambulatory and feeling well on the day of discharge. No evident complication. Total Time Total Time Spent Total Time Spent (In Minutes): 10 Total Time Includes: Examination of the Patient, Discharge Planning and Medication Reconciliation Discharge Plan Discharge Items Patient Disposition: Home - Self-Care Reason For Visit: AFLUTTER ABLATION Discharge Diagnosis: Atrial flutter Condition on Discharge: Good Activity: Per Instructions section Activity Comment: No lifting >10# for 5 days Lifting: No more than 10 pounds Bathing: No limitations Bathing Comment: Keep access sites clean and dry (no soaking) Sexual Activity: When tolerated Driving/Machine Use: Resume 1 day after discharge Non-emergency contact: Manager File Call non-emergency contact if: you have any medication questions Follow-up/Referrals: Tobi Quach MD [Primary Care Provider] - Diet: Heart Healthy Addtl Attending Provider Instructions: none Pending Studies at Discharge: No Stand-Alone Forms: My [employer], Smoking Cessation Medications and DC Order Prescriptions: Continued multivitamin tablet 1 tab PO QAM RF: 0 valacyclovir [Valtrex] 500 mg tablet 500 mg PO Q8H PRN (Reason: Cold Sores) RF: 0 alprazolam [Xanax] 0.25 mg tablet 0.25 mg PO HS RF: 0 Eliquis 5 mg Tablet 5 mg PO BID Qty: 60 RF: 0 diltiazem HCl 180 mg capsule,extended release 24hr 180 mg PO DAILY Qty: 30 RF: 5 Discharge Orders: Discharge Order (Routine); Ordered 09/11/19 Ordered By: Akhsat Humphreys Admission Data Admit Date/Time: 09/10/19 14:47 Attending Provider: Akshat Humphreys Admit Provider: Akshat Humphreys Primary Care Provider: Tobi Quach Coding Level of Care Code 94075 OBS Care - Discharge Diagnoses Atrial flutter with rapid ventricular response I48.92
[2019-09-11] MEDS ORDERED: APIXABAN 5 MG TABLET PO SCH (09:00)
[2019-09-11] MEDS ORDERED: dilTIAZem ER 180 MG CAPCR PO SCH (09:00)
== END 2019-09-11 09:35 | disposition home or self-care (01) ==
LOC: EP 11:08 → 2S 11:08